=== PATIENT | male | born 1960 | race Caucasian/White ===

== ENCOUNTER → 2017-12-17 | Outpatient (CLI) | payer MEDICAID | LOC: FIMAGING 06:15 | PROVIDERS: ATTEND Orthopaedic Surgery Sports Medicine | DX: Z98.890 Other specified postprocedural states (principal); M75.121 Complete rotator cuff tear or rupture of right shoulder, not specified as traumatic; M67.911 Unspecified disorder of synovium and tendon, right shoulder; M62.511 Muscle wasting and atrophy, not elsewhere classified, right shoulder ==